=== PATIENT | female | born 1970 | race Caucasian/White ===

== ENCOUNTER 2019-07-31 06:29 | Emergency (ER) | payer SELFPAY ==
--- NOTE | 2019-07-31 07:22 | EDM.PDOC ---
ED HPI GENERAL MEDICAL PROBLEM - General Chief Complaint: Respiratory Problem Stated Complaint: FATIGUE; LEG NUMBNESS; SOB Time Seen by Provider: 07/31/19 07:15 Source of Information: Reports: Patient History Limitations: Reports: No Limitations - History of Present Illness INITIAL COMMENTS - FREE TEXT/NARRATIVE: 48-year-old female who reports that for the past 2 weeks she has had significant fatigue and feels like she wants to sleep all the time. She also notices with any activity that she becomes short of breath and she feels worn out with even small amounts of activity. She also has had feeling of tightness in the anterior left knee and proximal thigh as well as noticing a bruise on the left lateral, proximal lower leg over that period of time as well. She reports pain in her left knee that is somewhat sharp and tight and she rates it as about a 7/10 with walking and about a 2/10 at rest. Sometimes, though, the pain is throbbing and aching and does not allow her to sleep. No swelling noted in her legs. She does have right knee pain and has had that for some time and knows that she has some degenerative condition in that knee but she feels that the left knee is somewhat "different". She has had no chest pain. No hemoptysis. She has had a mild cough and she has asthma and has been using her inhaler more frequently through the day. No fevers. No chills. No nausea or vomiting. She has been eating and drinking normally. No other associated signs or symptoms. No other modifying factors. Onset: Other (2 weeks) Duration: Getting Worse Location: Reports: Lower Extremity, Left (Left knee and distal thigh) Quality: Reports: Sharp (And tight) Severity: Moderate Improves with: Reports: Rest Worsens with: Reports: Other (Activity), Movement Context: Reports: Other (As above) Associated Symptoms: Reports: No Other Symptoms (Other than as above) Treatments INSTALLER: Reports: Other (see below) (MDI's) L knee Pain Score (Numeric/FACES): 3 - Related Data Allergies Allergy/AdvReac Type Severity Reaction Status Date / Time No Known Allergies Allergy Verified 07/31/19 06:36 Home Meds: Home Meds Albuterol [Ventolin HFA] 1 - 2 puff IH Q4H PRN 07/31/19 [History] Doxycycline Monohydrate 100 mg PO BID 7 Days #14 tablet 07/31/19 [Rx] predniSONE [Prednisone] 60 mg PO DAILY 5 Days #15 tablet 07/31/19 [Rx] Past Medical History Cardiovascular History: Reports: Heart Failure (She states that this happened one time and she has had no problems since then.), Other (See Below) Other Cardiovascular History: 'have leaky heart valves but apparently has been followed with newspaper stuffer who told her that they were normal Respiratory History: Reports: Asthma Other [employer] History: Musculoskeletal History: Reports: Arthritis, Back Pain, Chronic Endocrine/Metabolic History: Reports: Obesity/BMI 30+ - Infectious Disease History Infectious Disease History: Reports: Chicken Pox - Past Surgical History GI Surgical History: Reports: Appendectomy Female Surgical History: Reports: Hysterectomy Musculoskeletal Surgical History: Reports: Arthroscopic Knee (Right knee) Social & Family History - Family History Respiratory: Reports: PE (In her father that resulted in his ) - Tobacco Use Smoking Status *Q: Current Every Day Smoker Years of Tobacco use: 30 Packs/Tins Daily: 0.3 - Caffeine Use Caffeine Use: Reports: Soda - Recreational Drug Use Recreational Drug Use: No - Living Situation & Occupation Living situation: Reports: with Significant Other 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) ED ROS GENERAL - Review of Systems Review Of Systems: See Below Constitutional: Reports: Fatigue HEENT: Reports: No Symptoms Respiratory: Reports: Shortness of Breath, Cough Cardiovascular: Reports: Dyspnea on Exertion Endocrine: Reports: Fatigue GI/Abdominal: Reports: No Symptoms : Reports: No Symptoms Musculoskeletal: Reports: Leg Pain (Left knee and distal thigh pain as above.) Skin: Reports: Bruising (Left lateral knee and proximal lower leg) Neurological: Reports: No Symptoms Hematologic/Lymphatic: Reports: No Symptoms Immunologic: Reports: No Symptoms ED EXAM, GENERAL - Physical Exam Exam: See Below Exam Limited By: No Limitations General Appearance: Alert, WD/WN, No Apparent Distress Eye Exam: Bilateral Eye: EOMI, Normal Inspection Ears: Normal External Exam, Hearing Grossly Normal Ear Exam: Bilateral Ear: Auricle Normal Nose: Normal Inspection, Normal Mucosa, No Blood Throat/Mouth: Normal Inspection, Normal Oropharynx, Normal Voice, No Airway Compromise Head: Atraumatic, Normocephalic Neck: Normal Inspection, Supple, Non-Tender, Full Range of Motion Respiratory/Chest: No Respiratory Distress, Lungs Clear, Normal Breath Sounds, No Accessory Muscle Use, Chest Non-Tender Cardiovascular: Normal Peripheral Pulses, Regular Rate, Rhythm, No Murmur Peripheral Pulses: 2+: Radial (L), Radial (R) GI/Abdominal: Normal Bowel Sounds, Soft, Non-Tender, No Mass Back Exam: Normal Inspection Extremities: Normal Range of Motion, No Pedal Edema, Normal Capillary Refill, Other (Ecchymosis over left lateral knee/proximal lower leg.) Neurological: Alert, Oriented, CN II-XII Intact, Normal Cognition, No Motor/ Sensory Deficits Skin Exam: Warm, Dry, Intact, Normal Color, No Rash EKG INTERPRETATION EKG Date: 07/31/19 Time: 07:57 Rhythm: NSR Rate (Beats/Min): 74 [place]: Normal P-Wave: Present QRS: Normal ST-T: Normal QT: Normal Comparison: NA - No Prior EKG Course - Vital Signs Last Recorded V/S: Last Vital Signs Temp 36.5 C 07/31/19 06:32 Pulse 93 07/31/19 06:32 Resp 24 H 07/31/19 06:32 BP 142/73 H 07/31/19 06:32 Pulse Ox 98 07/31/19 06:32 - Orders/Labs/Meds Orders: Active Orders 24 hr Category Date Time Status EKG Documentation Completion [RC] ASDIRECTED Care 07/31/19 07:43 Active Ang Chest [CT] Stat Exams 07/31/19 08:35 Taken Chest 2V [CR] Stat Exams 07/31/19 07:41 Taken Sodium Chloride 0.9% [Saline Flush] Med 07/31/19 07:41 Active 10 ml FLUSH ASDIRECTED PRN Peripheral IV Insertion Adult [OM.PC] Routine Oth 07/31/19 07:41 Ordered EKG 12 Lead [EK] Routine Ther 07/31/19 07:43 Ordered Medication Orders Sodium Chloride (Saline Flush) 10 ml FLUSH ASDIRECTED PRN PRN Reason: Keep Vein Open Labs: Laboratory Tests 07/31/19 07/31/19 07/31/19 Range/Units 06:25 06:30 06:30 WBC 7.3 (4.5-12.0) X10-3/uL RBC 4.03 (3.23-5.20) x10(6)uL Hgb 12.8 (11.5-15.5) g/dL Hct 38.4 (30.0-51.3) % MCV 95.2 (80-96) fL MCH 31.7 (27.7-33.6) pg MCHC 33.3 (32.2-35.4) g/dL RDW 12.7 (11.5-15.5) % Plt Count 330 (125-369) X10(3)uL MPV 7.6 (7.4-10.4) fL Neut % (Auto) 57.4 (46-82) % Lymph % (Auto) 26.9 (13-37) % [place] % (Auto) 13.1 H (4-12) % Eos % (Auto) 2 (1.0-5.0) % Baso % (Auto) 0 (0-2) % Neut # (Auto) 4.1 (1.6-8.3) # Lymph # (Auto) 2.0 (0.6-5.0) # [place] # (Auto) 1.0 (0.0-1.3) # Eos # (Auto) 0.2 (0.0-0.8) # Baso # (Auto) 0.0 (0.0-0.2) # D-Dimer, Quantitative 0.67 H (0.0-0.59) mg/LFEU Sodium 140 (135-145) mmol/L Potassium 4.0 (3.5-5.3) mmol/L Chloride 106 (100-110) mmol/L Carbon Dioxide 27 (21-32) mmol/L BUN 16 (7-18) mg/dL Creatinine 0.7 (0.55-1.02) mg/dL Est Cr Clr Drug Dosing 79.42 mL/min Estimated GFR (MDRD) > 60 (>60) BUN/Creatinine Ratio 22.9 H (9-20) Glucose 98 (80-116) mg/dL Calcium 8.8 (8.6-10.2) mg/dL Total Bilirubin 0.3 (0.1-1.3) mg/dL AST 21 (5-25) IU/L ALT 24 (12-36) U/L Alkaline Phosphatase 84 (56-112) IU/L Troponin I (<0.017-0.056) ng/mL C-Reactive Protein (0.5-0.9) mg/dL NT-Pro-B Natriuret Pep (<=125) pg/mL Total Protein 7.3 (6.0-8.0) g/dL Albumin 3.8 (3.5-5.2) g/dL Globulin 3.5 g/dL Albumin/Globulin Ratio 1.1 07/31/19 Range/Units 06:30 WBC (4.5-12.0) X10-3/uL RBC (3.23-5.20) x10(6)uL Hgb (11.5-15.5) g/dL Hct (30.0-51.3) % MCV (80-96) fL MCH (27.7-33.6) pg MCHC (32.2-35.4) g/dL RDW (11.5-15.5) % Plt Count (125-369) X10(3)uL MPV (7.4-10.4) fL Neut % (Auto) (46-82) % Lymph % (Auto) (13-37) % [place] % (Auto) (4-12) % Eos % (Auto) (1.0-5.0) % Baso % (Auto) (0-2) % Neut # (Auto) (1.6-8.3) # Lymph # (Auto) (0.6-5.0) # [place] # (Auto) (0.0-1.3) # Eos # (Auto) (0.0-0.8) # Baso # (Auto) (0.0-0.2) # D-Dimer, Quantitative (0.0-0.59) mg/LFEU Sodium (135-145) mmol/L Potassium (3.5-5.3) mmol/L Chloride (100-110) mmol/L Carbon Dioxide (21-32) mmol/L BUN (7-18) mg/dL Creatinine (0.55-1.02) mg/dL Est Cr Clr Drug Dosing mL/min Estimated GFR (MDRD) (>60) BUN/Creatinine Ratio (9-20) Glucose (80-116) mg/dL Calcium (8.6-10.2) mg/dL Total Bilirubin (0.1-1.3) mg/dL AST (5-25) IU/L ALT (12-36) U/L Alkaline Phosphatase (56-112) IU/L Troponin I < 0.017 L (<0.017-0.056) ng/mL C-Reactive Protein 0.8 (0.5-0.9) mg/dL NT-Pro-B Natriuret Pep 200 H (<=125) pg/mL Total Protein (6.0-8.0) g/dL Albumin (3.5-5.2) g/dL Globulin g/dL Albumin/Globulin Ratio Meds: Medications Generic Name Dose Route Start Last Admin Trade Name Freq PRN Reason Stop Dose Admin Sodium Chloride 10 ml 07/31/19 07:41 Saline Flush FLUSH ASDIRECTED PRN Keep Vein Open Discontinued Medications Generic Name Dose Route Start Last Admin Trade Name Freq PRN Reason Stop Dose Admin Iopamidol 80 ml 07/31/19 09:40 07/31/19 09:53 Isovue-370 (76%) IV 07/31/19 09:41 80 ml . DIRECTED ONE Administration - Radiology Interpretation Free Text/Narrative:: Chest x-ray PA and lateral shows no acute disease. CTA of chest shows no pulmonary embolus. There is bilateral perihilar bronchial wall thickening and patchy micronodular opacity in the medial right lower lobe consistent with infection. - Re-Assessments/Exams Free Text/Narrative Re-Assessment/Exam: 07/31/19 10:45: The patient's CT angiogram was negative for pulmonary embolus. She does have what appears to be pneumonia/inflammation in her right lung. She does have asthma and this could also be related to an asthma exacerbation. I am unsure why she is having the fatigue and the increasing dyspnea on exertion. I did discuss possibilities with her. Obstructive sleep apnea is a possibility. Latent heart disease is also a possibility. I guess this could also be getting a nonischemic cardiomyopathy. I will treat the patient with doxycycline 100 mg twice daily for 7 days and a 5 day course of prednisone and she will be told to use her inhalers needed. She was also encouraged to follow-up with her primary provider within the next week or 2 as she will need further outpatient evaluation. The patient is in agreement with plan for discharge. Precautions and reasons to return to the emergency department were discussed with the patient prior to discharge. Departure - Departure Time of Disposition: 11:00 Disposition: Home, Self-Care 01 Condition: Good Clinical Impression: Dyspnea on exertion Right middle lobe pneumonia Qualifiers: Pneumonia type: due to unspecified organism Qualified Code(s): J18.9 - Pneumonia, unspecified organism Asthma exacerbation Qualifiers: Asthma severity: moderate Asthma persistence: persistent Qualified Code(s): J45.41 - Moderate persistent asthma with (acute) exacerbation Fatigue Qualifiers: Fatigue type: unspecified Qualified Code(s): R53.83 - Other fatigue Left knee DJD Qualifiers: Osteoarthritis type: unspecified Qualified Code(s): M17.12 - Unilateral primary osteoarthritis, left knee Right knee DJD Qualifiers: Osteoarthritis type: unspecified Qualified Code(s): M17.11 - Unilateral primary osteoarthritis, right knee - Discharge Information Prescriptions: Doxycycline Monohydrate 100 mg PO BID 7 Days #14 tablet predniSONE [Prednisone] 60 mg PO DAILY 5 Days #15 tablet Instructions: Shortness of Breath, Adult, [id number], Asthma, Adult, Easy-to- Read, Community-Acquired Pneumonia, Adult, [id number] Referrals: Katelyn Chi NP [Primary Care Provider] - Forms: ED Department Discharge Additional Instructions: Your blood tests were reassuringly normal. Your EKG was reassuringly normal. Your chest x-ray showed no acute problem. The CT scan of your chest ruled out blood clots but did show evidence of a right pneumonia and some inflammation in the center of your lungs. I am unsure why you are having the fatigue and the shortness of breath with activity. Could be related to your pneumonia and to an asthma exacerbation. I am treating you for these conditions. Medication as prescribed (doxycycline 100 mg, prednisone). Increase your fluid intake. You will need to follow-up with your primary doctor/provider to 2 weeks as she will need additional testing to try to why you are having this fatigue and shortness of breath with activity. Back to the emergency department for chest pain, worse breathing, unrelenting vomiting or any other concerning sign or symptom. Sepsis Event Note - Evaluation Sepsis Screening Result: No Definite Risk - Focused Exam Vital Signs: Vital Signs Temp Pulse Resp BP Pulse Ox 07/31/19 06:32 36.5 C 93 24 H 142/73 H 98 Date Exam was Performed: 07/31/19 Time Exam was Performed: 10:52 - My Orders Last 24 Hours: My Active Orders 07/31/19 07:41 Chest 2V [CR] Stat Sodium Chloride 0.9% [Saline Flush] 10 ml FLUSH ASDIRECTED PRN Peripheral IV Insertion Adult [OM.PC] Routine 07/31/19 07:43 EKG Documentation Completion [RC] ASDIRECTED EKG 12 Lead [EK] Routine 07/31/19 08:35 Ang Chest [CT] Stat - Assessment/Plan Last 24 Hours: My Active Orders 07/31/19 07:41 Chest 2V [CR] Stat Sodium Chloride 0.9% [Saline Flush] 10 ml FLUSH ASDIRECTED PRN Peripheral IV Insertion Adult [OM.PC] Routine 07/31/19 07:43 EKG Documentation Completion [RC] ASDIRECTED EKG 12 Lead [EK] Routine 07/31/19 08:35 Ang Chest [CT] Stat
[2019-07-31] MEDS ORDERED: Sodium Chloride 0.9% 10 ML Syringe FLUSH PRN (07:41)
[2019-07-31] MEDS ORDERED: Iopamidol 755 Mg/ML 100 ML Bottle IV ONE (09:40)
--- NOTE | 2019-08-01 09:59 | CR ---
INDICATION: Shortness of breath. Smoker x30 years, 3 cigarettes a day. CHEST, 2 VIEWS: PA and lateral views of the chest were obtained 08/07/19 - no comparisons. Evidence of exogenous obesity is noted. The heart is normal in size and shape. Mediastinum was essentially unremarkable. A minimal dextroconvex scoliosis is noted at the lower thoracic spine. A definite active infiltrate or effusion was not identified. However, there is some [id number] bronchial wall cuffing at the lower lung garcía - lung bases especially, which may be on the basis of active peribronchial disease, and should be correlated clinically. MTDD
== END 2019-07-31 11:10 | disposition home or self-care (01) ==
LOC: FB.ED 06:29
DX: J45.41 Moderate persistent asthma with (acute) exacerbation (principal); J18.9 Pneumonia, unspecified organism; R53.83 Other fatigue; M17.12 Unilateral primary osteoarthritis, left knee; M17.11 Unilateral primary osteoarthritis, right knee; I50.9 Heart failure, unspecified; E66.9 Obesity, unspecified; F17.210 Nicotine dependence, cigarettes, uncomplicated; Z79.52 Long term (current) use of systemic steroids; Z68.42 Body mass index [BMI] 45.0-49.9, adult
CPT/HCPCS: 36415; 71046; 71275; 80053; 83880; 84484; 85025; 85379; 86140; 93005; 93010; 99283; 99285-25; Q9967